=== PATIENT | male | born 1950 | race Two or more races ===

== ENCOUNTER 2016-07-09 20:15 | Emergency (ER) | payer BC ==
[~2016-07-09] VITALS: Ht 170.2 cm; Wt 83.9 kg
[2016-07-09 20:21] VITALS: BP 130/79
[2016-07-09] MEDS ORDERED: TETRACAINE HCL/PF 0.5% UD 2 ML BOTTLE ONE ×2 (20:49→21:15)
[2016-07-09] MEDS ORDERED: FLUORESCEIN SODIUM OPHTH 1 EA STRIP ONE ×3 (20:49→21:15)
[2016-07-09] MEDS ORDERED: FLUORESCEIN SODIUM OPHTH 1 EA STRIP OP ONE (21:00)
[2016-07-09] MEDS ORDERED: TETRACAINE HCL/PF 0.5% UD 2 ML BOTTLE EACHEYE ONE (21:00)
== END 2016-07-09 23:04 | disposition home or self-care (01) ==
LOC: ER 20:17
DX: Z01.00 Encounter for examination of eyes and vision without abnormal findings (principal); F41.9 Anxiety disorder, unspecified
CPT/HCPCS: 99283; A4606; Z7610